=== PATIENT | male | born 1960 | race Caucasian/White ===

== ENCOUNTER 2016-07-13 08:48 | Emergency (ER) | payer OTHER ==
[2016-07-13] MEDS ORDERED: IPRATROPIUM 0.5MG/ALBUTEROL 2.5MG INH SOL UD 3ML (DUONEB)(J7620) As Ordered ONE (09:34)
--- NOTE | 2016-07-13 10:35 | REP ---
CHEST, TWO VIEWS: HISTORY: Cough. COMPARISON: 01/24/2016 A 7 mm parenchymal density is present in the left upper lobe. This is unchanged in size compared to the previous studies. The right lung is clear. The heart is normal in size. The pulmonary vasculature is normal in appearance. The bony structure is intact. IMPRESSION: No acute disease. Signed by Wyatt Diaz MD 07/13/2016 11:16 A
--- NOTE | 2016-07-13 11:37 | EDDOCDS ---
Nurse's Notes [facility] Name: Brandon Yung Age: 56 yrs Sex: Male : 1960 Arrival Date: 07/13/2016 Time: 08:48 Bed TR8 Private MD: Rj Bhatt MD Diagnosis: Acute bronchitis-exudate vs lesion right posterior pharynx, recommend close follow up, possible biopsy by ENT Presentation: 07/13 09:00 Presenting complaint: Patient states: pt c/o cough, runny nose, and headache x 4 days. ead Adult Sepsis Screening:. Suicide/Homicide risk assessment- the patient denies having any suicidal and/or homicidal ideations and does not present with any other emotional, behavioral or mental health complaints. 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 Transition of care: patient was not received from another setting of care. 09:00 Acuity: JACQUI Level 3 ead 09:00 Method Of Arrival: Walkin/Carried/Asstd ead 11:36 Adult Sepsis Screening: The patient does not have new or worsening altered mentation. ms18 Patient's respiratory rate is less than 22. Systolic blood pressure is greater than 100. Patient has a qSOFA score of 0- Negative Sepsis Screen. Triage Assessment: 09:05 General: Appears in no apparent distress, comfortable. Pain: Pain currently is 4 out of ead 10 on a pain scale. Pain: Location: face. HIV screening NA for this visit Offered previously. Neurological: Level of Consciousness is awake, alert, obeys commands, Oriented to person, place, time, Reports headache. Respiratory: Onset: The symptoms/episode began/occurred 4 days ago, Airway is patent Respiratory effort is even, unlabored. Respiratory: Reports cough that is non-productive. Derm: Skin is pink, warm & dry. Historical: - Allergies: NSAIDS (abdominal pain); - Home Meds: 1. allopurinol 100 mg Oral tab 1 tab once daily 2. atenolol 50 mg oral tab 2 times per day 3. bisacodyl 5 mg Oral TbEC 1 tab as needed for procedures 4. capsaicin 0.025 % Topical crea 3 times per day as needed for shingles 5. Cholestyramine Light 4 gram oral pwpk 1 packet 2 times per day 6. dicyclomine 10 mg Oral cap twice a day 7. gabapentin 100 mg Oral cap as needed 1 to 2 tabs (Last dose: Unknown) 8. hydrocodone-acetaminophen 10-325 mg Oral tab 1 tab three times a day As needed (Last dose: 07/12/2016) 9. lactobacillus 2 chewables three times a day diarrhea 10. mercaptopurine 50 mg oral tab 2 tab twice a day 11. loperamide 2 mg Oral cap as needed (Last dose: Unknown) 12. lisinopril 40 mg Oral tab once daily (Last dose: 07/12/2016) 13. pantoprazole 40 mg oral TbEC 1 tab 2 times per day 14. paroxetine HCl 20 mg Oral tab once daily (Last dose: Unknown) 15. simvastatin 40 mg oral tab once daily 16. 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 No barriers to communication noted, The patient speaks fluent Armenian, Speaks appropriately for age. - Family history: Not pertinent. - : The pt / caregiver states he / she is not on anticoagulants. Home medication list is obtained from the patient, [employer] import data. - Exposure Risk Screening:: None identified. Screenin:09 Screening information is obtained from the patient. Fall risk: No risks identified. ead Assistance ADL's: requires no assistance with activities of daily living. Abuse/DV Screen: The patient / caregiver reports he/she is: not in a situation that causes fear, pain or injury. Nutritional screening: No deficits noted. Advance Directives: Currently, there is no health care proxy. There is no active DNR order. There is no living will. There is no Power of Maintenance Helper. home support is adequate. Assessment: 09:35 General: Appears in no apparent distress, Behavior is cooperative, pleasant. jc4 Neurological: Level of Consciousness is awake, alert, Oriented to person, place, time. Cardiovascular: Heart tones S1 S2 present. Respiratory: Airway is patent Respiratory effort is even, unlabored, Respiratory pattern is regular, symmetrical, Breath sounds are diminished bilaterally. Derm: Skin is pink, warm & dry. 11:34 General: Appears in no apparent distress, comfortable, Behavior is appropriate for age, ms18 cooperative, pleasant. Pain: Denies pain. Neurological: No deficits noted. Respiratory: Airway is patent Respiratory effort is even, unlabored, Respiratory pattern is regular, symmetrical. GI: Abdomen is non- distended. Derm: Skin is pink, warm & dry. Vital Signs: 09:09 BP 159 / 92; Pulse 68; Resp 20; Temp 97.0(O); Pulse Ox 95% on R/A; Weight 86.64 kg (R); ead Height 5 ft. 9 in. (175.26 cm) (R); Pain 4/10; 11:25 BP 167 / 87 RA Sitting (auto/lg); Pulse 73; Resp 18; Temp 97.9(O); Pulse Ox 95% on R/A; ar3 Pain 3/10; 09:09 Body Mass Index 28.21 (86.64 kg, 175.26 cm) ead Vitals: 09:05 Log In Time: July 13, 2016 at 08:48. ead 09:28 Strep Screen is obtained and tested: Negative, a GATSNEG culture is ordered in [place] [address] and sent. ED Course: 08:49 Patient visited by Karen Bui Reg. lg 08:49 Rj Bhatt is Private Physician. lg 08:49 Patient moved to Waiting lg 09:01 Triage Initiated ead 09:07 Patient moved to Triage 1 jc4 09:10 Patient visited by Noelle Overton RN. ead 09:10 Cruz Arias PA-C is PHCP. ar2 09:10 Barb Hunt MD is Attending Physician. ar2 09:10 Patient visited by Cruz Arias PA-C. ar2 09:17 Patient moved to PD jc4 09:35 GATS (NEGATIVE STREP SCREEN) Sent. jc4 09:36 The patient / caregiver is instructed regarding the plan of care and ED course. jc4 09:58 [facility] Payment Agreement was scanned into [employer] and attached to record. lg 10:44 Chest, 2 View (pa\E\lat) Returned. EDMS 11:03 [facility] is Referral Physician. ar2 11:17 Patient visited by Jasmin Smith PCA. ar3 11:26 Patient visited by Jasmin Smith PCA. ar3 11:34 Patient moved to TR8 ms18 11:34 Patient has correct armband on for positive identification. Property sent home with ms18 patient. :Personal belongings accompany Pt. 11:34 No IV's were initiated during this patient's visit. No procedures done that require ms18 assistance. Administered Medications: 09:37 Drug: Albuterol-Ipratropium 3 ml [ipratropium-albuterol 0.5 mg-3 mg(2.5 mg base)/3 mL cs15 nebulization soln (3 mL)] Route: Inhalation; RT: 09:37 Initial Med Neb Given as ordered. Respiratory: Breath sounds are diminished cs15 bilaterally. Reports no history of lung disease but current smoker. 11:31 Patient Education: I gave the pt a spacer and showed him how to use it with his cs15 inhaler. His inhaler was not available to show him how to use them together. I told him how to plug in the inhaler and when to use it and how many puffs to do. Order Results: Radiology Order: Chest, 2 View (pa\E\lat) Test: Chest, 2 View (pa\E\lat) REASON FOR EXAMINATION: cough, sob; CHEST, TWO VIEWS:; ; HISTORY: Cough.; ; COMPARISON: 01/24/2016; ; A 7 mm parenchymal density is present in the left upper lobe. This is unchanged; in size compared to the previous studies. The right lung is clear. The heart is; normal in size. The pulmonary vasculature is normal in appearance. The bony; structure is intact.; ; IMPRESSION:; ; No acute disease.; ; ; ; Unreviewed; Outcome: 11:03 Discharge ordered by Provider. ar2 11:34 Discharge Assessment: Patient awake, alert and oriented x 3. No cognitive and/or ms18 functional deficits noted. Patient verbalized understanding of disposition instructions. patient administered narcotics - no. The following High Risk Discharge criteria are identified: None. Discharged to home ambulatory. Condition: good Condition: stable Condition: improved. Discharge instructions given to patient, Instructed on discharge instructions, follow up and referral plans. medication usage, Demonstrated understanding of instructions, medications, Pt was receptive of discharge instructions/ teaching. Prescriptions given X 4. No special radiology studies were completed. 11:36 Patient left the ED. ms18 Signatures: Dispatcher [employer] Karen Neves, Gerber Barclayhaw, Cruz, PA-Ayaka PA-C ar2 Jasmin Smith, COUPLES THERAPIST COUPLES THERAPIST ar3 Charlene Li, RN RN jc4 Noelle Overton,RN RN Darcie Rojas,RN RN ms18 Phillip Abreu,RT RT cs15 MTDD
--- NOTE | 2016-07-13 11:37 | EDDOCDS ---
Physician Documentation [facility] Name: Brandon Yung Age: 56 yrs Sex: Male : 1960 Arrival Date: 07/13/2016 Time: 08:48 Bed TR8 Private MD: Rj Bhatt MD Disposition: 07/13/16 11:03 Discharged to Home/Self Care. Impression: Acute bronchitis - exudate vs lesion right posterior pharynx, recommend close follow up, possible biopsy by ENT. - Condition is Stable. - Discharge Instructions: Acute Bronchitis, Metered Dose Inhaler with Spacer, Smoking Cessation. - Prescriptions for Doxycycline Hyclate 100 mg Oral Tablet - take 1 tablet by ORAL route every 12 hours; 20 tablet. Mucinex 600 mg - take 1 tablet by ORAL route 2 times per day; 30 tablet. Fluticasone 50 mcg/actuation Nasal [place], Suspension - inhale 2 spray by INTRANASAL route once daily; 1 bottle. Albuterol Sulfate 90 mcg/actuation Inhalation HFA Aerosol Inhaler - inhale 2 puff by INHALATION route every 4 hours As needed; 1 Inhaler. - Medication Reconciliation, Local Pharmacy Hours form. - Follow up: [facility]; When: 4 - 5 days; Reason: Recheck today's complaints. Follow up: Emergency Department; When: As needed; Reason: Fever > 102F, Trouble breathing, Worsening of conditions. - Problem is new. - Symptoms are unchanged. Historical: - Allergies: NSAIDS (abdominal pain); - Home Meds: 1. allopurinol 100 mg Oral tab 1 tab once daily 2. atenolol 50 mg oral tab 2 times per day 3. bisacodyl 5 mg Oral TbEC 1 tab as needed for procedures 4. capsaicin 0.025 % Topical crea 3 times per day as needed for shingles 5. Cholestyramine Light 4 gram oral pwpk 1 packet 2 times per day 6. dicyclomine 10 mg Oral cap twice a day 7. gabapentin 100 mg Oral cap as needed 1 to 2 tabs (Last dose: Unknown) 8. hydrocodone-acetaminophen 10-325 mg Oral tab 1 tab three times a day As needed (Last dose: 07/12/2016) 9. lactobacillus 2 chewables three times a day diarrhea 10. mercaptopurine 50 mg oral tab 2 tab twice a day 11. loperamide 2 mg Oral cap as needed (Last dose: Unknown) 12. lisinopril 40 mg Oral tab once daily (Last dose: 07/12/2016) 13. pantoprazole 40 mg oral TbEC 1 tab 2 times per day 14. paroxetine HCl 20 mg Oral tab once daily (Last dose: Unknown) 15. simvastatin 40 mg oral tab once daily 16. 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 No barriers to communication noted, The patient speaks fluent Bengali, Speaks appropriately for age. - Family history: Not pertinent. - : The pt / caregiver states he / she is not on anticoagulants. Home medication list is obtained from the patient, [employer] import data. - Exposure Risk Screening:: None identified. Vital Signs: 07/13 09:09 BP 159 / 92; Pulse 68; Resp 20; Temp 97.0(O); Pulse Ox 95% on R/A; Weight 86.64 kg / ead 191.01 lbs (R); Height 5 ft. 9 in. (175.26 cm) (R); Pain 4/10; 11:25 BP 167 / 87 RA Sitting (auto/lg); Pulse 73; Resp 18; Temp 97.9(O); Pulse Ox 95% on R/A; ar3 Pain 3/10; 09:09 Body Mass Index 28.21 (86.64 kg, 175.26 cm) ead MDM: 09:15 Strep Screen, Nursing ordered. ar2 09:15 Albuterol-Ipratropium 3 ml Inhalation once ordered. ar2 09:16 Chest, 2 View (pa\E\lat) Ordered. EDMS 09:30 GATS (NEGATIVE STREP SCREEN) Ordered. EDMS 09:45 Financial registration complete. lg 09:58 [facility] Payment Agreement was scanned into [employer] and attached to record. lg 11:05 MDI teaching with Spacer ordered. ar2 Administered Medications: 09:37 Drug: Albuterol-Ipratropium 3 ml [ipratropium-albuterol 0.5 mg-3 mg(2.5 mg base)/3 mL cs15 nebulization soln (3 mL)] Route: Inhalation; Signatures: Dispatcher [employer] EDMS Karen Bui, Reg Reg lg Cruz Arias, ZOIE LINO ar2 Noelle OvertonRN RN Darcie Rojas RN RN ms18 Phillip Abreu RT cs15 The chart was reviewed and I authenticate all verbal orders and agree with the evaluation and treatment provided.Attachments: 09:58 [facility] Payment Agreement lg MTDD
--- NOTE | 2016-07-15 12:37 | EDDOCDS ---
Nurse's Notes [facility] Name: Brandon Yung Age: 56 yrs Sex: Male : 1960 Arrival Date: 07/13/2016 Time: 08:48 Bed TR8 Private MD: jR Bhatt MD Diagnosis: Acute bronchitis-exudate vs lesion right posterior pharynx, recommend close follow up, possible biopsy by ENT Presentation: 07/13 09:00 Presenting complaint: Patient states: pt c/o cough, runny nose, and headache x 4 days. ead Adult Sepsis Screening:. Suicide/Homicide risk assessment- the patient denies having any suicidal and/or homicidal ideations and does not present with any other emotional, behavioral or mental health complaints. 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 Transition of care: patient was not received from another setting of care. 09:00 Acuity: JACQUI Level 3 ead 09:00 Method Of Arrival: Walkin/Carried/Asstd ead 11:36 Adult Sepsis Screening: The patient does not have new or worsening altered mentation. ms18 Patient's respiratory rate is less than 22. Systolic blood pressure is greater than 100. Patient has a qSOFA score of 0- Negative Sepsis Screen. Triage Assessment: 09:05 General: Appears in no apparent distress, comfortable. Pain: Pain currently is 4 out of ead 10 on a pain scale. Pain: Location: face. HIV screening NA for this visit Offered previously. Neurological: Level of Consciousness is awake, alert, obeys commands, Oriented to person, place, time, Reports headache. Respiratory: Onset: The symptoms/episode began/occurred 4 days ago, Airway is patent Respiratory effort is even, unlabored. Respiratory: Reports cough that is non-productive. Derm: Skin is pink, warm & dry. Historical: - Allergies: NSAIDS (abdominal pain); - Home Meds: 1. allopurinol 100 mg Oral tab 1 tab once daily 2. atenolol 50 mg oral tab 2 times per day 3. bisacodyl 5 mg Oral TbEC 1 tab as needed for procedures 4. capsaicin 0.025 % Topical crea 3 times per day as needed for shingles 5. Cholestyramine Light 4 gram oral pwpk 1 packet 2 times per day 6. dicyclomine 10 mg Oral cap twice a day 7. gabapentin 100 mg Oral cap as needed 1 to 2 tabs (Last dose: Unknown) 8. hydrocodone-acetaminophen 10-325 mg Oral tab 1 tab three times a day As needed (Last dose: 07/12/2016) 9. lactobacillus 2 chewables three times a day diarrhea 10. mercaptopurine 50 mg oral tab 2 tab twice a day 11. loperamide 2 mg Oral cap as needed (Last dose: Unknown) 12. lisinopril 40 mg Oral tab once daily (Last dose: 07/12/2016) 13. pantoprazole 40 mg oral TbEC 1 tab 2 times per day 14. paroxetine HCl 20 mg Oral tab once daily (Last dose: Unknown) 15. simvastatin 40 mg oral tab once daily 16. 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 No barriers to communication noted, The patient speaks fluent Romansh, Speaks appropriately for age. - Family history: Not pertinent. - : The pt / caregiver states he / she is not on anticoagulants. Home medication list is obtained from the patient, [employer] import data. - Exposure Risk Screening:: None identified. Screenin:09 Screening information is obtained from the patient. Fall risk: No risks identified. ead Assistance ADL's: requires no assistance with activities of daily living. Abuse/DV Screen: The patient / caregiver reports he/she is: not in a situation that causes fear, pain or injury. Nutritional screening: No deficits noted. Advance Directives: Currently, there is no health care proxy. There is no active DNR order. There is no living will. There is no Power of Soil Conservation Teacher. home support is adequate. Assessment: 09:35 General: Appears in no apparent distress, Behavior is cooperative, pleasant. jc4 Neurological: Level of Consciousness is awake, alert, Oriented to person, place, time. Cardiovascular: Heart tones S1 S2 present. Respiratory: Airway is patent Respiratory effort is even, unlabored, Respiratory pattern is regular, symmetrical, Breath sounds are diminished bilaterally. Derm: Skin is pink, warm & dry. 11:34 General: Appears in no apparent distress, comfortable, Behavior is appropriate for age, ms18 cooperative, pleasant. Pain: Denies pain. Neurological: No deficits noted. Respiratory: Airway is patent Respiratory effort is even, unlabored, Respiratory pattern is regular, symmetrical. GI: Abdomen is non- distended. Derm: Skin is pink, warm & dry. Vital Signs: 09:09 BP 159 / 92; Pulse 68; Resp 20; Temp 97.0(O); Pulse Ox 95% on R/A; Weight 86.64 kg (R); ead Height 5 ft. 9 in. (175.26 cm) (R); Pain 4/10; 11:25 BP 167 / 87 RA Sitting (auto/lg); Pulse 73; Resp 18; Temp 97.9(O); Pulse Ox 95% on R/A; ar3 Pain 3/10; 09:09 Body Mass Index 28.21 (86.64 kg, 175.26 cm) ead Vitals: 09:05 Log In Time: July 13, 2016 at 08:48. ead 09:28 Strep Screen is obtained and tested: Negative, a GATSNEG culture is ordered in [place] [address] and sent. ED Course: 08:49 Patient visited by Karen Bui Reg. lg 08:49 Rj Bhatt is Private Physician. lg 08:49 Patient moved to Waiting lg 09:01 Triage Initiated ead 09:07 Patient moved to Triage 1 jc4 09:10 Patient visited by Noelle Overton RN. ead 09:10 Cruz Arias PA-C is PHCP. ar2 09:10 Barb Hunt MD is Attending Physician. ar2 09:10 Patient visited by Cruz Arias PA-C. ar2 09:17 Patient moved to PD jc4 09:35 GATS (NEGATIVE STREP SCREEN) Sent. jc4 09:36 The patient / caregiver is instructed regarding the plan of care and ED course. jc4 09:58 [facility] Payment Agreement was scanned into [employer] and attached to record. lg 10:44 Chest, 2 View (pa\E\lat) Returned. EDMS 11:03 [place] is Referral Physician. ar2 11:17 Patient visited by Jasmin Smith PCA. ar3 11:26 Patient visited by Jasmin Smith PCA. ar3 11:34 Patient moved to TR8 ms18 11:34 Patient has correct armband on for positive identification. Property sent home with ms18 patient. :Personal belongings accompany Pt. 11:34 No IV's were initiated during this patient's visit. No procedures done that require ms18 assistance. 14:42 T-Sheet-- Draft Copy was scanned into [employer] and attached to record. gb 14:42 Radiology Report was scanned into [employer] and attached to record. gb Administered Medications: 09:37 Drug: Albuterol-Ipratropium 3 ml [ipratropium-albuterol 0.5 mg-3 mg(2.5 mg base)/3 mL cs15 nebulization soln (3 mL)] Route: Inhalation; RT: 09:37 Initial Med Neb Given as ordered. Respiratory: Breath sounds are diminished cs15 bilaterally. Reports no history of lung disease but current smoker. 11:31 Patient Education: I gave the pt a spacer and showed him how to use it with his cs15 inhaler. His inhaler was not available to show him how to use them together. I told him how to plug in the inhaler and when to use it and how many puffs to do. Order Results: Lab Order: GATS (NEGATIVE STREP SCREEN); SPEC'M 07/13/16 09:31 Test: GATS CULTURE (NEG STREP SCR); Value: GATS RESULT NEGATIVE FOR STREP PYOGENES (GROUP A); Status: F Radiology Order: Chest, 2 View (pa\E\lat) Test: Chest, 2 View (pa\E\lat) REASON FOR EXAMINATION: cough, sob; CHEST, TWO VIEWS:; ; HISTORY: Cough.; ; COMPARISON: 01/24/2016; ; A 7 mm parenchymal density is present in the left upper lobe. This is unchanged; in size compared to the previous studies. The right lung is clear. The heart is; normal in size. The pulmonary vasculature is normal in appearance. The bony; structure is intact.; ; IMPRESSION:; ; No acute disease.; ; ; Signed by; Wyatt Diaz MD 07/13/2016 11:16 A; Outcome: 11:03 Discharge ordered by Provider. ar2 11:34 Discharge Assessment: Patient awake, alert and oriented x 3. No cognitive and/or ms18 functional deficits noted. Patient verbalized understanding of disposition instructions. patient administered narcotics - no. The following High Risk Discharge criteria are identified: None. Discharged to home ambulatory. Condition: good Condition: stable Condition: improved. Discharge instructions given to patient, Instructed on discharge instructions, follow up and referral plans. medication usage, Demonstrated understanding of instructions, medications, Pt was receptive of discharge instructions/ teaching. Prescriptions given X 4. No special radiology studies were completed. 11:36 Patient left the ED. ms18 Signatures: Dispatcher [employer] EDMS Renetta Acosta, Reg Reg gb Karen Bui, Reg Reg lg Cruz Arias, PA-C PA-C ar2 Jasmin Smith, PREFITTER DOORS PREFITTER DOORS ar3 Charlene Li, RN RN jc4 Noelle Overton,RN Darcie Petit RN RN ms18 Phillip Abreu,RT RT cs15 Chart Complete JULIAN
--- NOTE | 2016-07-15 12:37 | EDDOCDS ---
Physician Documentation [facility] Name: Brandon Yung Age: 56 yrs Sex: Male : 1960 Arrival Date: 07/13/2016 Time: 08:48 Bed TR8 Private MD: Rj Bhatt MD Disposition: 07/13/16 11:03 Discharged to Home/Self Care. Impression: Acute bronchitis - exudate vs lesion right posterior pharynx, recommend close follow up, possible biopsy by ENT. - Condition is Stable. - Discharge Instructions: Acute Bronchitis, Metered Dose Inhaler with Spacer, Smoking Cessation. - Prescriptions for Doxycycline Hyclate 100 mg Oral Tablet - take 1 tablet by ORAL route every 12 hours; 20 tablet. Mucinex 600 mg - take 1 tablet by ORAL route 2 times per day; 30 tablet. Fluticasone 50 mcg/actuation Nasal [place], Suspension - inhale 2 spray by INTRANASAL route once daily; 1 bottle. Albuterol Sulfate 90 mcg/actuation Inhalation HFA Aerosol Inhaler - inhale 2 puff by INHALATION route every 4 hours As needed; 1 Inhaler. - Medication Reconciliation, Local Pharmacy Hours form. - Follow up: [facility]; When: 4 - 5 days; Reason: Recheck today's complaints. Follow up: Emergency Department; When: As needed; Reason: Fever > 102F, Trouble breathing, Worsening of conditions. - Problem is new. - Symptoms are unchanged. Historical: - Allergies: NSAIDS (abdominal pain); - Home Meds: 1. allopurinol 100 mg Oral tab 1 tab once daily 2. atenolol 50 mg oral tab 2 times per day 3. bisacodyl 5 mg Oral TbEC 1 tab as needed for procedures 4. capsaicin 0.025 % Topical crea 3 times per day as needed for shingles 5. Cholestyramine Light 4 gram oral pwpk 1 packet 2 times per day 6. dicyclomine 10 mg Oral cap twice a day 7. gabapentin 100 mg Oral cap as needed 1 to 2 tabs (Last dose: Unknown) 8. hydrocodone-acetaminophen 10-325 mg Oral tab 1 tab three times a day As needed (Last dose: 07/12/2016) 9. lactobacillus 2 chewables three times a day diarrhea 10. mercaptopurine 50 mg oral tab 2 tab twice a day 11. loperamide 2 mg Oral cap as needed (Last dose: Unknown) 12. lisinopril 40 mg Oral tab once daily (Last dose: 07/12/2016) 13. pantoprazole 40 mg oral TbEC 1 tab 2 times per day 14. paroxetine HCl 20 mg Oral tab once daily (Last dose: Unknown) 15. simvastatin 40 mg oral tab once daily 16. 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 No barriers to communication noted, The patient speaks fluent [place], Speaks appropriately for age. - Family history: Not pertinent. - : The pt / caregiver states he / she is not on anticoagulants. Home medication list is obtained from the patient, [employer] import data. - Exposure Risk Screening:: None identified. Vital Signs: 07/13 09:09 BP 159 / 92; Pulse 68; Resp 20; Temp 97.0(O); Pulse Ox 95% on R/A; Weight 86.64 kg / ead 191.01 lbs (R); Height 5 ft. 9 in. (175.26 cm) (R); Pain 4/10; 11:25 BP 167 / 87 RA Sitting (auto/lg); Pulse 73; Resp 18; Temp 97.9(O); Pulse Ox 95% on R/A; ar3 Pain 3/10; 09:09 Body Mass Index 28.21 (86.64 kg, 175.26 cm) ead MDM: 09:15 Strep Screen, Nursing ordered. ar2 09:15 Albuterol-Ipratropium 3 ml Inhalation once ordered. ar2 09:16 Chest, 2 View (pa\E\lat) Ordered. EDMS 09:30 GATS (NEGATIVE STREP SCREEN) Ordered. EDMS 09:45 Financial registration complete. lg 09:58 [facility] [place] was scanned into [employer] and attached to record. lg 11:05 MDI teaching with Spacer ordered. ar2 14:42 T-Sheet-- Draft Copy was scanned into [employer] and attached to record. gb 14:42 Radiology Report was scanned into [employer] and attached to record. gb Administered Medications: 09:37 Drug: Albuterol-Ipratropium 3 ml [ipratropium-albuterol 0.5 mg-3 mg(2.5 mg base)/3 mL cs15 nebulization soln (3 mL)] Route: Inhalation; Signatures: Dispatcher [employer] EDMS DaveRenetta, Reg Reg gb Karen Bui, Reg Reg lg Cruz Arias PA-C PA-C ar2 Noelle Overton RN RN eaDarcie Alcantara RN RN [id number] Phillip Abreu RT [id number] The chart was reviewed and I authenticate all verbal orders and agree with the evaluation and treatment provided.Attachments: 09:58 [facility] Payment Agreement lg 14:42 T-Sheet-- Draft Copy gb Chart Complete MTDD
--- NOTE | 2016-07-15 12:37 | EDDOCDS ---
Physician Documentation [facility] Name: Brandon Yung Age: 56 yrs Sex: Male : 1960 Arrival Date: 07/13/2016 Time: 08:48 Bed TR8 Private MD: Rj Bhatt MD Disposition: 07/13/16 11:03 Discharged to Home/Self Care. Impression: Acute bronchitis - exudate vs lesion right posterior pharynx, recommend close follow up, possible biopsy by ENT. - Condition is Stable. - Discharge Instructions: Acute Bronchitis, Metered Dose Inhaler with Spacer, Smoking Cessation. - Prescriptions for Doxycycline Hyclate 100 mg Oral Tablet - take 1 tablet by ORAL route every 12 hours; 20 tablet. Mucinex 600 mg - take 1 tablet by ORAL route 2 times per day; 30 tablet. Fluticasone 50 mcg/actuation Nasal [place], Suspension - inhale 2 spray by INTRANASAL route once daily; 1 bottle. Albuterol Sulfate 90 mcg/actuation Inhalation HFA Aerosol Inhaler - inhale 2 puff by INHALATION route every 4 hours As needed; 1 Inhaler. - Medication Reconciliation, Local Pharmacy Hours form. - Follow up: [facility]; When: 4 - 5 days; Reason: Recheck today's complaints. Follow up: Emergency Department; When: As needed; Reason: Fever > 102F, Trouble breathing, Worsening of conditions. - Problem is new. - Symptoms are unchanged. Historical: - Allergies: NSAIDS (abdominal pain); - Home Meds: 1. allopurinol 100 mg Oral tab 1 tab once daily 2. atenolol 50 mg oral tab 2 times per day 3. bisacodyl 5 mg Oral TbEC 1 tab as needed for procedures 4. capsaicin 0.025 % Topical crea 3 times per day as needed for shingles 5. Cholestyramine Light 4 gram oral pwpk 1 packet 2 times per day 6. dicyclomine 10 mg Oral cap twice a day 7. gabapentin 100 mg Oral cap as needed 1 to 2 tabs (Last dose: Unknown) 8. hydrocodone-acetaminophen 10-325 mg Oral tab 1 tab three times a day As needed (Last dose: 07/12/2016) 9. lactobacillus 2 chewables three times a day diarrhea 10. mercaptopurine 50 mg oral tab 2 tab twice a day 11. loperamide 2 mg Oral cap as needed (Last dose: Unknown) 12. lisinopril 40 mg Oral tab once daily (Last dose: 07/12/2016) 13. pantoprazole 40 mg oral TbEC 1 tab 2 times per day 14. paroxetine HCl 20 mg Oral tab once daily (Last dose: Unknown) 15. simvastatin 40 mg oral tab once daily 16. 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 No barriers to communication noted, The patient speaks fluent Belgian, Speaks appropriately for age. - Family history: Not pertinent. - : The pt / caregiver states he / she is not on anticoagulants. Home medication list is obtained from the patient, [employer] import data. - Exposure Risk Screening:: None identified. Vital Signs: 07/13 09:09 BP 159 / 92; Pulse 68; Resp 20; Temp 97.0(O); Pulse Ox 95% on R/A; Weight 86.64 kg / ead 191.01 lbs (R); Height 5 ft. 9 in. (175.26 cm) (R); Pain 4/10; 11:25 BP 167 / 87 RA Sitting (auto/lg); Pulse 73; Resp 18; Temp 97.9(O); Pulse Ox 95% on R/A; ar3 Pain 3/10; 09:09 Body Mass Index 28.21 (86.64 kg, 175.26 cm) ead MDM: 09:15 Strep Screen, Nursing ordered. ar2 09:15 Albuterol-Ipratropium 3 ml Inhalation once ordered. ar2 09:16 Chest, 2 View (pa\E\lat) Ordered. EDMS 09:30 GATS (NEGATIVE STREP SCREEN) Ordered. EDMS 09:45 Financial registration complete. lg 09:58 [facility] [place] Payment Agreement was scanned into [employer] and attached to record. lg 11:05 MDI teaching with Spacer ordered. ar2 14:42 T-Sheet-- Draft Copy was scanned into [employer] and attached to record. gb 14:42 Radiology Report was scanned into [employer] and attached to record. gb Administered Medications: 09:37 Drug: Albuterol-Ipratropium 3 ml [ipratropium-albuterol 0.5 mg-3 mg(2.5 mg base)/3 mL cs15 nebulization soln (3 mL)] Route: Inhalation; Signatures: Dispatcher [employer] EDMS DaveRenetta, Reg Reg gb Karen Bui, Reg Reg lg Cruz Arias PA-C PA-C ar2 Noelle Overton RN RN eaDarcie Alcantara RN RN [id number] Phillip Abreu RT cs15 The chart was reviewed and I authenticate all verbal orders and agree with the evaluation and treatment provided.Attachments: 09:58 [facility] Payment Agreement lg 14:42 T-Sheet-- Draft Copy gb Chart Complete MTDD
== END 2016-07-13 11:36 | disposition home or self-care (01) ==
LOC: M ED 08:48
DX: J20.9 Acute bronchitis, unspecified (principal); I10 Essential (primary) hypertension; E78.00 Pure hypercholesterolemia, unspecified; K21.9 Gastro-esophageal reflux disease without esophagitis; K58.9 Irritable bowel syndrome, unspecified; F17.210 Nicotine dependence, cigarettes, uncomplicated; Z79.891 Long term (current) use of opiate analgesic; Z79.899 Other long term (current) drug therapy; Z88.6 Allergy status to analgesic agent

== ENCOUNTER → 2016-11-24 | Outpatient (CLI) | payer OTHER ==
--- NOTE | 2016-11-24 12:56 | REP ---
SOFT TISSUE NECK, THREE VIEWS: HISTORY: Dysphagia. The cervical spine is visualized from C1 to the C6-7 level in the lateral radiographs. There is no acute fracture or subluxation. The C6-7 intervertebral disc is decreased in height consistent with disc degeneration. Anterior osteophytes are present on C6 and C7. Soft tissues of the neck are normal in appearance. IMPRESSION: Degenerative change as described above. Signed by Wyatt Diaz MD 11/24/2016 01:03 P
== END ==
LOC: M WUC 11:54
PROVIDERS: ATTEND Physician Assistant
DX: R13.12 Dysphagia, oropharyngeal phase (principal)

== ENCOUNTER 2017-03-31 09:02 | Emergency (ER) | payer OTHER ==
[~2017-03-31] VITALS: Ht 175.3 cm; Wt 83.2 kg
[2017-03-31] MEDS ORDERED: HYDR-3713 (09:20)
[2017-03-31 10:12] LABS: BASO # 0.1 10^3/uL (0.0-0.2); BASO % 0.6 % (0.0-1.0); EOS # 0.3 10^3/uL (0.0-0.50); EOS % 2.8 % (0.0-3.0); IMMATURE GRANULOCYTE % 0.2 % (0-0); LYMPH # 2.9 10^3/uL (1.5-4.5); LYMPH % 28.7 % (24.0-44.0); MEAN CORPUSCULAR HEMOGLOBIN 34.9 pg (27.0-33.0); MEAN CORPUSCULAR HGB CONC 34.6 g/dl (32.0-36.5); MEAN CORPUSCULAR VOLUME 100.9 fl (80.0-96.0); MONO # 0.9 10^3/uL (0.0-0.8); MONO % 8.9 % (0.0-5.0); NEUTROPHILS # 5.9 10^3/uL (1.8-7.7); NEUTROPHILS % 58.8 % (36.0-66.0); PLATELET COUNT, AUTOMATED 228 10^3/uL (150-450); RED CELL DISTRIBUTION WIDTH 13.9 % (11.5-14.5)
[2017-03-31 10:24] LABS: ADD MANUAL DIFFER NO; DIFF SLIDE NUMBER 164
[2017-03-31 11:21] LABS: ALBUMIN 3.8 GM/DL (3.2-5.2); ALBUMIN/GLOBULIN RATIO 1.03 (1.00-1.93); ALKALINE PHOSPHATASE 91 U/L (45-117); ALT/SGPT 47 U/L (12-78); ANION GAP 6 MEQ/L (8-16); AST/SGOT 16 U/L (15-37); BILIRUBIN,TOTAL 0.3 MG/DL (0.2-1.0); BLOOD UREA NITROGEN 16 MG/DL (7-18); CALCIUM LEVEL 9.5 MG/DL (8.5-10.1); CARBON DIOXIDE LEVEL 25 MEQ/L (21-32); CHLORIDE LEVEL 108 MEQ/L (98-107); CREATININE FOR GFR 0.99 MG/DL (0.70-1.30); GLOMERULAR FILTRATION RATE > 60.0 (>56); GLUCOSE, FASTING 87 MG/DL (70-105); POTASSIUM SERUM 4.1 MEQ/L (3.5-5.1); SODIUM LEVEL 139 MEQ/L (136-145); TOTAL PROTEIN 7.5 GM/DL (6.4-8.2)
[2017-03-31] MEDS ORDERED: CYCL10TA PO (11:37)
[2017-03-31] MEDS ORDERED: FLAG500T PO (11:37)
[2017-03-31] MEDS ORDERED: CIPR-249 PO (11:37)
[2017-03-31 12:14] VITALS: BP 111/68
== END 2017-03-31 12:15 | disposition home or self-care (01) ==
LOC: M ED 09:02
DX: K57.32 Diverticulitis of large intestine without perforation or abscess without bleeding (principal); M54.16 Radiculopathy, lumbar region; Z72.0 Tobacco use

== ENCOUNTER 2017-08-08 13:37 | Emergency (ER) | payer OTHER ==
[2017-08-08 15:43] LABS: BASO # 0.1 10^3/uL (0.0-0.2); BASO % 0.6 % (0.0-1.0); EOS # 0.4 10^3/uL (0.0-0.50); EOS % 4.5 % (0.0-3.0); HEMATOCRIT 38.7 % (42.0-52.0); HEMOGLOBIN 13.5 g/dl (14.0-18.0); IMMATURE GRANULOCYTE % 0.2 % (0-3.0); LYMPH # 2.4 10^3/uL (1.5-4.5); LYMPH % 27.9 % (24.0-44.0); MEAN CORPUSCULAR HEMOGLOBIN 34.4 pg (27.0-33.0); MEAN CORPUSCULAR HGB CONC 34.9 g/dl (32.0-36.5); MEAN CORPUSCULAR VOLUME 98.5 fl (80.0-96.0); MONO # 0.8 10^3/uL (0.0-0.8); MONO % 9.6 % (0.0-5.0); NEUTROPHILS # 4.8 10^3/uL (1.8-7.7); NEUTROPHILS % 57.2 % (36.0-66.0); PLATELET COUNT, AUTOMATED 239 10^3/uL (150-450); RED BLOOD COUNT 3.93 10^6/uL (4.30-6.10); RED CELL DISTRIBUTION WIDTH 13.2 % (11.5-14.5); WHITE BLOOD COUNT 8.5 10^3/uL (4.0-10.0)
== END 2017-08-08 16:51 | disposition home or self-care (01) ==
LOC: M ED 13:37
DX: L76.22 Postprocedural hemorrhage of skin and subcutaneous tissue following other procedure (principal); I10 Essential (primary) hypertension; K21.9 Gastro-esophageal reflux disease without esophagitis; K58.9 Irritable bowel syndrome, unspecified; Z88.8 Allergy status to other drugs, medicaments and biological substances; Z87.891 Personal history of nicotine dependence
CPT/HCPCS: 76705

== ENCOUNTER 2017-09-01 10:25 | Emergency (ER) | payer OTHER ==
[2017-09-01 10:52] LABS: BASO # 0.1 10^3/uL (0.0-0.2); BASO % 0.2 % (0.0-1.0); HEMATOCRIT 42.5 % (42.0-52.0); HEMOGLOBIN 14.7 g/dl (14.0-18.0); IMMATURE GRANULOCYTE % 0.8 % (0-3.0); LYMPH # 1.2 10^3/uL (1.5-4.5); LYMPH % 5.5 % (24.0-44.0); MEAN CORPUSCULAR HEMOGLOBIN 34.5 pg (27.0-33.0); MEAN CORPUSCULAR HGB CONC 34.6 g/dl (32.0-36.5); MEAN CORPUSCULAR VOLUME 99.8 fl (80.0-96.0); MONO % 9.4 % (0.0-5.0); NEUTROPHILS % 84.1 % (36.0-66.0); PLATELET COUNT, AUTOMATED 145 10^3/uL (150-450); RED BLOOD COUNT 4.26 10^6/uL (4.30-6.10); RED CELL DISTRIBUTION WIDTH 13.3 % (11.5-14.5); WHITE BLOOD COUNT 22.6 10^3/uL (4.0-10.0)
[2017-09-01 11:09] LABS: MONO # 2.1 10^3/uL (0.0-0.8); POSITIVE DIFF POS FLAG
[2017-09-01] MEDS: NS 500 ML IV (11:10)
[2017-09-01] MEDS: ACETAMINOPHEN 650 MG SUPP PR (11:42)
[2017-09-01 11:44] LABS: INR 1.08; PROTHROMBIN TIME 14.2 SECONDS (12.4-14.5)
[2017-09-01 12:00] LABS: ALBUMIN/GLOBULIN RATIO 0.73 (1.00-1.93); ALKALINE PHOSPHATASE 97 U/L (45-117); ALT/SGPT 42 U/L (12-78); ANION GAP 10 MEQ/L (8-16); AST/SGOT 16 U/L (7-37); BILIRUBIN,DIRECT 0.2 MG/DL (0.0-0.2); BILIRUBIN,TOTAL 0.7 MG/DL (0.2-1.0); BLOOD UREA NITROGEN 23 MG/DL (7-18); CALCIUM LEVEL 8.6 MG/DL (8.5-10.1); CARBON DIOXIDE LEVEL 23 MEQ/L (21-32); CHLORIDE LEVEL 104 MEQ/L (98-107); CK-MB VALUE MASS 1.4 NG/ML (0.0-3.6); CPK CREATINE PHOSPHOKINASE 71 U/L (39-308); CREATININE FOR GFR 2.37 MG/DL (0.70-1.30); GLOMERULAR FILTRATION RATE 30.2 (>56); GLUCOSE, FASTING 107 MG/DL (70-100); LIPASE 360 U/L (73-393); MB/CK RELATIVE INDEX 1.97 (< OR =4); POTASSIUM SERUM 4.6 MEQ/L (3.5-5.1); SODIUM LEVEL 137 MEQ/L (136-145); TOTAL PROTEIN 7.1 GM/DL (6.4-8.2); TROPONIN I < 0.02 NG/ML (< 0.10)
[2017-09-01 12:23] LABS: LACTIC ACID SEPSIS PROTOCOL 3.4 MMOL/L (0.4-2.0)
[2017-09-01] MEDS: PIPERACILLIN/TAZOBACTAM SOD 3.375 GM in APPROPRIATE DILUENT 1 EA IV (14:00)
[2017-09-01] MEDS: NS 1,000 ML IV (14:24)
[2017-09-01 15:24] LABS: LACTIC ACID SEPSIS PROTOCOL 1.7 MMOL/L (0.4-2.0)
== END 2017-09-01 16:29 | disposition short-term general hospital (02) ==
LOC: M ED 10:25
DX: L02.211 Cutaneous abscess of abdominal wall (principal); Z79.899 Other long term (current) drug therapy; Z79.51 Long term (current) use of inhaled steroids; Z98.890 Other specified postprocedural states; Z88.8 Allergy status to other drugs, medicaments and biological substances
CPT/HCPCS: J2543

== ENCOUNTER 2018-10-08 20:03 | Emergency (ER) | payer OTHER ==
[~2018-10-08] VITALS: Ht 175.3 cm; Wt 87.7 kg
[~2018-10-08 20:03] MED LIST: ALLO100T PO; ATEN50TA2 PO; BACITAB PO; BENT10CA PO; CIPR-249 PO; CYCL10TA PO; DOXA1TAB41 PO; FLAG500T PO; FLOM0.4C39 PO; FLUTISP; GABA-845 PO; HYDR-3713; HYDR-4517 PO; INFL10VL IV; LISI40TA PO; MERC50TA2 PO; PANT40TA3 PO; SIMV80TA13 PO
[2018-10-08] MEDS ORDERED: NS 1,000 ML IV ONE (20:30)
[2018-10-08] MEDS ORDERED: KETOROLAC 30 MG/ML VIAL (J1885) IV ONE (20:30)
[2018-10-08] MEDS ORDERED: ONDANSETRON 4MG/2ML VIAL (J2405) IV ONE (20:30)
[2018-10-08 20:35] LABS: HEMATOCRIT 43.9 % (42.0-52.0); MEAN CORPUSCULAR HEMOGLOBIN 34.2 pg (27.0-33.0); MEAN CORPUSCULAR HGB CONC 34.2 g/dl (32.0-36.5); MEAN CORPUSCULAR VOLUME 100.2 fl (80.0-96.0); PLATELET COUNT, AUTOMATED 244 10^3/uL (150-450); RED BLOOD COUNT 4.38 10^6/uL (4.30-6.10); WHITE BLOOD COUNT 11.4 10^3/uL (4.0-10.0)
[2018-10-08 20:48] LABS: BLOOD UREA NITROGEN 16 MG/DL (7-18); CALCIUM LEVEL 8.9 MG/DL (8.5-10.1); CARBON DIOXIDE LEVEL 24 MEQ/L (21-32); CHLORIDE LEVEL 111 MEQ/L (98-107); CREATININE FOR GFR 1.21 MG/DL (0.70-1.30); GLOMERULAR FILTRATION RATE > 60.0 (>56); GLUCOSE, FASTING 120 MG/DL (70-100); POTASSIUM SERUM 4.3 MEQ/L (3.5-5.1); SODIUM LEVEL 144 MEQ/L (136-145)
[2018-10-08 21:17] LABS: ATYPICAL LYMPH 1 % (0-5); EOSINOPHILS 5 % (0-5); LYMPHOCYTES 43 % (16-52); MONOCYTES 4 % (0-8); NEUTROPHILS 47 % (35-75); PLATELET ESTIMATE NORMAL (NORMAL)
--- NOTE | 2018-10-08 23:04 | REPVR ---
EXAM: CT Abdomen and Pelvis Without Contrast EXAM DATE/TIME: 10/08/2018 10:13 PM CLINICAL HISTORY: 58 years old, male; Pain; Abdominal pain; Colic; Additional info: Left renal colic TECHNIQUE: Imaging protocol: Axial computed tomography images of the abdomen and pelvis without contrast. Coronal and sagittal reformatted images were created and reviewed. Radiation optimization: All CT scans at this facility use at least one of these dose optimization techniques: automated exposure control; mA and/or kV adjustment per patient size (includes targeted exams where dose is matched to clinical indication); or iterative reconstruction. COMPARISON: CT ABD PELVIS W/O CONTRAST 09/01/2017 12:02 PM FINDINGS: Lower thorax: Lung bases are clear. ABDOMEN: Liver: There is decreased attenuation of the liver consistent with hepatic steatosis. There is focal fatty sparing adjacent to the gallbladder fossa. Gallbladder and bile ducts: Unremarkable. Pancreas: Normal. No ductal dilation. Spleen: Normal. No splenomegaly. Adrenals: Stable appearance of a small left adrenal adenoma. Kidneys and ureters: There are multiple bilateral punctate calyceal calcifications. There is mild left hydroureteronephrosis secondary to a 5.5 mm stone which appears stuck at the ureterovesicular junction. Stomach and bowel: There is mild diverticulosis without diverticulitis. Appendix: The appendix is not seen and there are surgical changes of the cecum. PELVIS: Bladder: The urinary bladder is incompletely distended, limiting evaluation. Reproductive: Unremarkable as visualized. ABDOMEN and PELVIS: Intraperitoneal space: Normal. No free air. No significant fluid collection. Bones/joints: Mild degenerative changes of the lumbar spine. Soft tissues: There is minimal stranding along the midline subcutaneous abdominal wall tissues, significantly improved from prior. Vasculature: Normal. No abdominal aortic aneurysm. Lymph nodes: Normal. No enlarged lymph nodes. IMPRESSION: Mild left hydroureteronephrosis due to a 5.5 mm left UVJ calculus. Electronically signed by: Stella Armstrong On 10/08/2018 23:04:39 PM
[2018-10-08] MEDS ORDERED: KETO10TAB PO (23:30)
[2018-10-08] MEDS ORDERED: FLOM0.4C39 PO (23:30)
[2018-10-08] MEDS ORDERED: TAMSULOSIN 0.4 MG CAP PO ONE (23:30)
[2018-10-08] MEDS ORDERED: ONDA4TAB6 PO (23:31)
[2018-10-08 23:32] VITALS: BP 166/82
[2018-10-08 23:50] LABS: APPEARANCE, URINE HAZY (CLEAR); BACTERIA, URINE AUTO NEGATIVE (NEGATIVE); BILIRUBIN, URINE AUTO NEGATIVE (NEGATIVE); BLOOD, URINE BLOOD 3+ (NEGATIVE); COLOR, URINE YELLOW (YELLOW); GLUCOSE, URINE (UA) AUTO NEGATIVE (NEGATIVE); KETONE, URINE AUTO TRACE mg/dL (NEGATIVE); LEUKOCYTE ESTERASE, URINE AUTO NEGATIVE (NEGATIVE); MUCUS, URINE SMALL (NEGATIVE); NITRITE, URINE AUTO NEGATIVE (NEGATIVE); PROTEIN, URINE AUTO NEGATIVE (NEGATIVE); RBC, URINE AUTO TNTC /HPF (0-3); SPECIFIC GRAVITY URINE AUTO 1.018 (1.002-1.035); SQUAMOUS EPITHELIAL CELL UR AU 0 /HPF (0-6); UROBILINOGEN, URINE AUTO 0.2 mg/dL (0.0-2.0); WBC, URINE AUTO 4 /HPF (0-3)
[2018-10-09] MEDS ORDERED: OXYC1TAB15 PO (09:39)
== END 2018-10-08 23:44 | disposition home or self-care (01) ==
LOC: M ED 20:03
DX: N21.1 Calculus in urethra (principal); Z72.0 Tobacco use; Z90.49 Acquired absence of other specified parts of digestive tract; Z96.0 Presence of urogenital implants; Z87.442 Personal history of urinary calculi; I10 Essential (primary) hypertension; K58.9 Irritable bowel syndrome, unspecified; K21.9 Gastro-esophageal reflux disease without esophagitis; K57.92 Diverticulitis of intestine, part unspecified, without perforation or abscess without bleeding; Z79.899 Other long term (current) drug therapy
CPT/HCPCS: 74176; 80048; 81001; 85025; 96374; 96375; 99284; J1885; J2405

== ENCOUNTER 2018-10-09 06:47 | Emergency (ER) | payer OTHER ==
[~2018-10-09] VITALS: Ht 175.3 cm; Wt 87.7 kg
[~2018-10-09 06:47] MED LIST changes: +KETO10TAB PO; +ONDA4TAB6 PO
[2018-10-09] MEDS ORDERED: KETOROLAC 30 MG/ML VIAL (J1885) IV ONE (07:15)
[2018-10-09] MEDS ORDERED: METOCLOPRAMIDE INJ 10MG/2ML VIAL (J2765) IV ONE (07:15)
[2018-10-09] MEDS ORDERED: NS 1,000 ML IV ONE (07:15)
[2018-10-09] MEDS ORDERED: DEXTROSE IV ONE (07:30)
[2018-10-09] MEDS ORDERED: LIDOCAINE HCL IV ONE (07:30)
[2018-10-09] MEDS ORDERED: DILUENT IV ONE (07:30)
[2018-10-09 07:37] LABS: BASO # 0.1 10^3/uL (0.0-0.2); BASO % 0.6 % (0.0-1.0); EOS # 0.3 10^3/uL (0.0-0.50); EOS % 3.2 % (0.0-3.0); HEMATOCRIT 42.5 % (42.0-52.0); HEMOGLOBIN 14.6 g/dl (13.5-17.5); MEAN CORPUSCULAR HEMOGLOBIN 33.9 pg (27.0-33.0); MEAN CORPUSCULAR HGB CONC 34.4 g/dl (32.0-36.5); MEAN CORPUSCULAR VOLUME 98.6 fl (80.0-96.0); MONO # 0.8 10^3/uL (0.0-0.8); MONO % 8.3 % (0.0-5.0); NEUTROPHILS # 5.8 10^3/uL (1.8-7.7); NEUTROPHILS % 57.6 % (36.0-66.0); PLATELET COUNT, AUTOMATED 228 10^3/uL (150-450); RED BLOOD COUNT 4.31 10^6/uL (4.30-6.10); WHITE BLOOD COUNT 10.1 10^3/uL (4.0-10.0)
[2018-10-09 08:04] LABS: BLOOD UREA NITROGEN 20 MG/DL (7-18); CALCIUM LEVEL 8.8 MG/DL (8.5-10.1); CARBON DIOXIDE LEVEL 21 MEQ/L (21-32); CHLORIDE LEVEL 111 MEQ/L (98-107); CREATININE FOR GFR 1.27 MG/DL (0.70-1.30); GLOMERULAR FILTRATION RATE > 60.0 (>56); GLUCOSE, FASTING 105 MG/DL (70-100); POTASSIUM SERUM 4.1 MEQ/L (3.5-5.1); SODIUM LEVEL 142 MEQ/L (136-145)
[2018-10-09] MEDS ORDERED: OXYC1TAB15 PO (09:39)
[2018-10-09 09:46] VITALS: BP 152/84
== END 2018-10-09 09:59 | disposition home or self-care (01) ==
LOC: M ED 06:47
DX: N23 Unspecified renal colic (principal); I10 Essential (primary) hypertension; Z87.442 Personal history of urinary calculi; K58.9 Irritable bowel syndrome, unspecified; K21.9 Gastro-esophageal reflux disease without esophagitis; F17.200 Nicotine dependence, unspecified, uncomplicated; Z79.899 Other long term (current) drug therapy; Z87.19 Personal history of other diseases of the digestive system; Z98.890 Other specified postprocedural states
CPT/HCPCS: 80048; 81001; 85025; 96374; 96375; 99284; J1885; J2765

== ENCOUNTER → 2020-01-26 | Emergency (ER) | payer OTHER ==
[~2020-01-26] MED LIST changes: +CYCL-707 PO; -CYCL10TA PO; +ISOVUE-370 76% 100ML VIAL As Ordered ONE; +OXYC1TAB15 PO; +PANT40TA29 PO; -PANT40TA3 PO; +PANTOPRAZOLE 40MG VIAL (C9113 PER 1) As Ordered ONE
[2020-03-03 17:08] LABS: BASO # 0.1 10^3/uL (0.0-0.2); BASO % 0.5 % (0.0-1.0); EOS # 0.3 10^3/uL (0.0-0.5); EOS % 3.4 % (0.0-3.0); HEMATOCRIT 47.5 % (42.0-52.0); HEMOGLOBIN 16.1 g/dl (13.5-17.5); LYMPH # 3.3 10^3/uL (1.5-5.0); LYMPH % 33.8 % (24.0-44.0); MEAN CORPUSCULAR HEMOGLOBIN 33.7 pg (27.0-33.0); MEAN CORPUSCULAR HGB CONC 33.9 g/dl (32.0-36.5); MEAN CORPUSCULAR VOLUME 99.4 fl (80.0-96.0); MONO % 9.9 % (0.0-5.0); NEUTROPHILS # 5.2 10^3/uL (1.5-8.5); NEUTROPHILS % 52.2 % (36.0-66.0); PLATELET COUNT, AUTOMATED 206 10^3/uL (150-450); RED BLOOD COUNT 4.78 10^6/uL (4.30-6.10); WHITE BLOOD COUNT 9.9 10^3/uL (4.0-10.0)
[2020-03-03 18:08] LABS: ERYTHROCYTE SEDIMENTATION RATE 3 mm/hr (0-20)
[2020-03-03 18:08] LABS: INR 1.01; PARTIAL THROMBOPLASTIN TIME 27.2 SECONDS (25.0-38.4); PROTHROMBIN TIME 13.5 SECONDS (11.8-14.0)
[2020-04-06 11:03] LABS: ALBUMIN 3.8 GM/DL (3.2-5.2); ALT/SGPT 67 U/L (12-78); BILIRUBIN,DIRECT 0.1 MG/DL (0.0-0.2); BILIRUBIN,TOTAL 0.5 MG/DL (0.2-1.0); BLOOD UREA NITROGEN 14 MG/DL (7-18); C REACTIVE PROTEIN QUANTITATIV 0.51 MG/DL (0.00-0.30); CALCIUM LEVEL 9.4 MG/DL (8.8-10.2); CARBON DIOXIDE LEVEL 28 MEQ/L (21-32); CHLORIDE LEVEL 110 MEQ/L (98-107); CREATININE FOR GFR 1.15 MG/DL (0.70-1.30); GLOMERULAR FILTRATION RATE > 60.0 (>49); GLUCOSE, FASTING 84 MG/DL (70-100); POTASSIUM SERUM 4.2 MEQ/L (3.5-5.1); SODIUM LEVEL 143 MEQ/L (136-145); TOTAL PROTEIN 7.5 GM/DL (6.4-8.2)
== END | disposition home or self-care (01) ==
LOC: M ED 12:45
DX: R10.32 Left lower quadrant pain (principal); R19.7 Diarrhea, unspecified; K50.90 Crohn's disease, unspecified, without complications; Z79.899 Other long term (current) drug therapy; Z79.82 Long term (current) use of aspirin; Z88.8 Allergy status to other drugs, medicaments and biological substances
CPT/HCPCS: 74177; 80048; 80076; 85025; 85610; 85652; 85730; 86140; 86850; 86900; 86901; 96361; 96374; 99283; C9113; Q9967

== ENCOUNTER 2020-07-03 17:05 | Emergency (ER) | payer OTHER ==
[~2020-07-03] VITALS: Ht 175.3 cm; Wt 88.2 kg
[~2020-07-03 17:05] MED LIST changes: -ISOVUE-370 76% 100ML VIAL As Ordered ONE; -PANTOPRAZOLE 40MG VIAL (C9113 PER 1) As Ordered ONE
[2020-07-03] MEDS ORDERED: KETOROLAC 30 MG/ML 1ML VIAL IV ONE ×2 (17:45→18:30)
[2020-07-03] MEDS ORDERED: ONDANSETRON 4MG/2ML VIAL IV ONE (17:45)
[2020-07-03] MEDS ORDERED: TAMSULOSIN 0.4 MG CAP PO ONE (18:30)
--- NOTE | 2020-07-03 18:56 | REPVR ---
PROCEDURE INFORMATION: Exam: CT Abdomen And Pelvis Without Contrast Exam date and time: 07/03/2020 6:18 PM Age: 60 years old Clinical indication: Abdominal pain; Flank; Right; Additional info: Right renal colic TECHNIQUE: Imaging protocol: Computed tomography of the abdomen and pelvis without contrast. Radiation optimization: All CT scans at this facility use at least one of these dose optimization techniques: automated exposure control; mA and/or kV adjustment per patient size (includes targeted exams where dose is matched to clinical indication); or iterative reconstruction. COMPARISON: CT ABD PELVIS W/O CONTRAST 10/08/2018 10:06 PM FINDINGS: Lungs: Dependent atelectasis within the lung bases. Liver: Diffuse hepatic steatosis with areas of focal fatty sparing adjacent to the gallbladder fossa. Gallbladder and bile ducts: Contracted gallbladder without calcified gallstones. No pericholecystic fluid. Normal caliber common bile duct. Pancreas: Unremarkable. No ductal dilation. Spleen: Unremarkable. No splenomegaly. Adrenal glands: Low-density nodularity of the left adrenal gland, unchanged consistent with adenoma. Normal right adrenal gland. Kidneys and ureters: Multiple nonobstructing stones ranging from punctate to 11 mm in diameter within the right kidney. Stone measuring 3.5 mm within the distal aspect of the right ureter (axial images [id number] and coronal reformatted image 66). Mild to moderate right hydroureteronephrosis. 3 or 4 punctate nonobstructing stones in the left kidney. No left hydronephrosis. No focal renal lesion. Stomach and bowel: Diverticulosis of the descending and sigmoid colon. No diverticulitis. Status post right hemicolectomy with ileocolic anastomosis. No bowel obstruction. The stomach and small bowel are unremarkable. Appendix: No evidence of appendicitis. Intraperitoneal space: No free air. No significant fluid collection. Vasculature: Mild atherosclerosis of the abdominal aorta and branch vessels. No aneurysm. Lymph nodes: No enlarged lymph nodes. Urinary bladder: Unremarkable as visualized. Reproductive: Unremarkable as visualized. Bones/joints: No acute bone or joint abnormality. Soft tissues: Tiny right umbilical hernia containing fat. IMPRESSION: 1. 3.5 mm stone in the right distal ureter resulting in mild to moderate right hydroureteronephrosis. 2. Bilateral nephrolithiasis. 3. Other nonemergent findings as described above. Electronically signed by: Maxx Garcia On 07/03/2020 18:56:26 PM
[2020-07-03 20:00] VITALS: BP 164/86
[2020-07-03] MEDS ORDERED: ONDA4TAB6 PO (21:29)
[2020-07-03] MEDS ORDERED: PERC5TAB12 PO (21:29)
[2020-07-03] MEDS ORDERED: FLOM0.4C39 PO (21:29)
[2020-07-03] MEDS ORDERED: KETO10TAB PO (21:29)
[2020-07-03] MEDS ORDERED: PERCOCET 5MG/325MG TAB PO ONE (21:30)
[2020-07-03] MEDS ORDERED: OXYCODONE/APAP 5MG/325MG(BULK FOR ED) 1 TABLET PO ONE (21:30)
== END 2020-07-03 21:42 | disposition home or self-care (01) ==
LOC: M ED 17:05
DX: N13.2 Hydronephrosis with renal and ureteral calculous obstruction (principal); K58.9 Irritable bowel syndrome, unspecified; I10 Essential (primary) hypertension; F17.200 Nicotine dependence, unspecified, uncomplicated
CPT/HCPCS: 74176; 96374; 96375; 99284; J1885; J2405

== ENCOUNTER 2021-02-05 10:42 | Emergency (ER) | payer OTHER ==
[~2021-02-05] VITALS: Ht 175.3 cm; Wt 91.8 kg
[~2021-02-05 10:42] MED LIST changes: +GABA-283 PO; -GABA-845 PO; -LISI40TA PO; +LISI40TA4 PO; -OXYC1TAB15 PO; +OXYC7.5T3 PO; +PERC5TAB12 PO
--- NOTE | 2021-02-05 13:40 | REP ---
INDICATION: pain. COMPARISON: None. TECHNIQUE: Multiple ultrasonographic images of the deep venous structures of the right lower extremity were obtained from the inguinal ligament to the ankle. Venous compression techniques, color doppler imaging, and augmentation techniques were also obtained where appropriate. As per the ACR guidelines the anterior tibial vein can not be effectively evaluated. Only compression techniques in the calf on the peroneal and posterior tibial veins was attempted/performed. FINDINGS: There is no abnormal echogenic material seen within any of the visualized deep venous structures that would suggest acute thrombosis. Coaptation is unremarkable throughout. Doppler interrogation shows an expected response to respiratory variability and augmentation in the thigh. Compression techniques in the calf showed no abnormality. The color flow images show what appears to be a normal vascular pattern throughout the thigh. IMPRESSION: There is no ultrasonographic evidence of deep venous thrombosis involving any of the visualized deep venous structures of the right lower extremity as described above. Deep vein ultrasonography cannot accurately assess for arterial disease. Consider bilateral lower extremity arterial ultrasound with Doppler. <Electronically signed by Sid Simpson > 02/05/21 [id number]
[2021-02-05 13:57] LABS: BASO # 0.1 10^3/uL (0.0-0.2); BASO % 0.9 % (0.0-1.0); EOS # 0.3 10^3/uL (0.0-0.5); EOS % 2.4 % (0.0-3.0); HEMATOCRIT 48.2 % (42.0-52.0); HEMOGLOBIN 16.9 g/dl (13.5-17.5); LYMPH # 3.4 10^3/uL (1.5-5.0); LYMPH % 32.9 % (24.0-44.0); MEAN CORPUSCULAR HEMOGLOBIN 34.8 pg (27.0-33.0); MEAN CORPUSCULAR HGB CONC 35.1 g/dl (32.0-36.5); MEAN CORPUSCULAR VOLUME 99.2 fl (80.0-96.0); MONO # 0.9 10^3/uL (0.0-0.8); MONO % 8.8 % (2.0-8.0); NEUTROPHILS # 5.6 10^3/uL (1.5-8.5); NEUTROPHILS % 54.8 % (36.0-66.0); PLATELET COUNT, AUTOMATED 208 10^3/uL (150-450); RED BLOOD COUNT 4.86 10^6/uL (4.30-6.10); WHITE BLOOD COUNT 10.3 10^3/uL (4.0-10.0)
[2021-02-05 14:19] LABS: ALBUMIN 3.9 GM/DL (3.2-5.2); ALT/SGPT 57 U/L (12-78); BILIRUBIN,DIRECT 0.2 MG/DL (0.0-0.2); BILIRUBIN,TOTAL 0.5 MG/DL (0.2-1.0); BLOOD UREA NITROGEN 13 MG/DL (7-18); CALCIUM LEVEL 9.4 MG/DL (8.8-10.2); CARBON DIOXIDE LEVEL 27 MEQ/L (21-32); CHLORIDE LEVEL 109 MEQ/L (98-107); CK-MB VALUE MASS < 1.0 NG/ML (<3.6); CPK CREATINE PHOSPHOKINASE 88 U/L (39-308); CREATININE FOR GFR 0.89 MG/DL (0.70-1.30); GLOMERULAR FILTRATION RATE > 60.0 (>49); GLUCOSE, FASTING 82 MG/DL (70-100); MB/CK RELATIVE INDEX 1.14 (< OR =4); NT-PRO BNP 168 PG/ML (<125); POTASSIUM SERUM 4.9 MEQ/L (3.5-5.1); SODIUM LEVEL 138 MEQ/L (136-145); TOTAL PROTEIN 7.5 GM/DL (6.4-8.2); TROPONIN I < 0.02 NG/ML (< 0.10)
[2021-02-05 14:20] LABS: C REACTIVE PROTEIN QUANTITATIV 1.21 MG/DL (0.00-0.30)
[2021-02-05 14:21] LABS: INR 0.93; PROTHROMBIN TIME 12.9 SECONDS (12.7-14.5)
[2021-02-05 14:22] LABS: PARTIAL THROMBOPLASTIN TIME 30.9 SECONDS (25.9-37.0)
[2021-02-05 14:24] LABS: D-DIMER QUANT 560.99 ng/ml (<500)
--- NOTE | 2021-02-05 14:37 | REP ---
INDICATION: CHEST PAIN. COMPARISON: None. FINDINGS: The technique utilized in obtaining the radiograph has magnified the cardiac silhouette and accentuated the interstitial markings. The superior mediastinal structures are midline. The cardiac silhouette is unremarkable in size, shape, and position. The diaphragmatic surfaces of the lungs are regular, and the costophrenic angles are clear. The interstitial markings are mildly increased and there is some evidence of early pulmonary vascular redistribution.. There are 2 left lung nodules which are unchanged. The imaged osseous structures are stable and intact. IMPRESSION: Possible early interstitial edema <Electronically signed by Sid Simpson > 02/05/21 [id number]
[2021-02-05] MEDS ORDERED: ISOVUE-370 76% 100ML VIAL As Ordered ONE (15:26)
--- NOTE | 2021-02-05 16:50 | REP ---
INDICATION: leg pain. COMPARISON: None. FINDINGS: Right lower extremity: Brachial peak systole: 200 mmHg Dorsalis pedis peak systole: Unable to tolerate mmHg [employer] peak systole: Unable to tolerate mmHg ARIANA: Unable to calculate. SQUEAK RATTLE [employer]AK REPAIRER: 59.2 velocity, triphasic phasicity Profunda: 120.8 velocity, triphasic phasicity SFA prox: 17.6/90.8/occlusion velocity, occlusion phasicity SFA mid: Occlusion, flow reversal/ collateral flow velocity, monophasic phasicity SFA dist: Occlusion, flow reversal/collateral flow velocity, monophasic phasicity Pop: 24 velocity, monophasic phasicity NIK prox: 25.8 velocity, monophasic phasicity Tib/P tr: 21.1 velocity, monophasic phasicity [employer] pr: 24.9 velocity, monophasic phasicity [employer] dst: 23.7 velocity, monophasic phasicity NIK dst: Occlusion velocity, occlusion phasicity Brachial peak systole: 198 mmHg Dorsalis pedis peak systole: Unable to tolerate mmHg [employer] peak systole: The unable to tolerate mmHg ARIANA: Unable to calculate. SQUEAK RATTLE [employer] LEAK REPAIRER: 69.4 velocity, 4 triphasic phasicity Profunda: The 91.0 velocity, triphasic phasicity SFA prox: 89.9 velocity, biphasic phasicity SFA mid: 124.9 velocity, biphasic phasicity SFA dist: 75.2 velocity, biphasic phasicity Pop: 31.0 velocity, triphasic phasicity NIK prox: 37.5 velocity, biphasic phasicity Tib/P tr: 68.4 velocity, biphasic phasicity [employer] pr: The 99.5 velocity, biphasic phasicity [employer] dst: 58.4 velocity, biphasic phasicity NIK dst: Occluded velocity, occluded phasicity IMPRESSION: Right lower extremity: Severe plaque throughout. There is occlusion at the mid and distal SFA with flow reversal and collateral flow. There is monophasic flow throughout below the mid SFA indicating poor vascular flow. Left lower extremity: There is moderate atheromatous plaque throughout the left lower extremity. There is triphasic and biphasic flow throughout to the distal [employer]. No significant stenosis is identified in these areas. The distal NIK is occluded. <Electronically signed by Enrico Lee > 02/05/21 [id number]
[2021-02-05] MEDS ORDERED: NORCO, ANEXSIA 5/325MG TABLET (HYDROcodone/ACETAMINOPHEN) PO ONE (17:15)
--- NOTE | 2021-02-05 17:27 | REP ---
INDICATION: elevated dimer/ SENIOR/ CP. COMPARISON: Comparison study is from June 20, 2009.. TECHNIQUE: Contrast dose: 75 ML of Isovue [address] technique: Helical scanning is acquired and overlapping 1.5 mm and contiguous 3 mm axial images are reformatted. In addition, maximum intensity projection and multiplanar re-formation images are generated in sagittal and coronal imaging projections. FINDINGS: There is good opacification in the pulmonary arterial tree. There is no evidence of vessel cut off or filling defect to suggest pulmonary embolus. Homogeneous opacity is seen in the thoracic aorta. There is no evidence of aneurysm or dissection. There is no evidence of pleural or pericardial effusion. There is vascular calcification along the course of the left coronary artery. No hilar or mediastinal mass or adenopathy is observed. Lung window settings demonstrate there are scattered pulmonary parenchymal granulomatous nodules. No lung mass or significant pulmonary nodule is appreciated. No infiltrate or atelectasis. In the upper abdomen, there is mild to moderate diffuse fatty infiltration of the liver. There is an area of fat sparing in the left lobe of the liver adjacent the gallbladder unchanged from comparison CT abdomen pelvis 26 January 2020. There are intrarenal calculi in the upper pole the right kidney seen at the bottom edge of the imaging field of view. The largest of these calculi measures 9 mm in diameter. IMPRESSION: No CT evidence of pulmonary embolus. Intrarenal nephrolithiasis right kidney. Fatty infiltration of the liver. Vascular calcification. Old granulomatous changes. <Electronically signed by Noe Don > 02/05/21 [id number]
[2021-02-05 18:06] VITALS: BP 162/70
--- NOTE | 2021-02-06 06:34 | ECGEPIP ---
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
== END 2021-02-05 18:41 | disposition home or self-care (01) ==
LOC: M ED 10:42
DX: N20.0 Calculus of kidney (principal); R00.1 Bradycardia, unspecified; R06.02 Shortness of breath; I70.201 Unspecified atherosclerosis of native arteries of extremities, right leg; I10 Essential (primary) hypertension; K21.9 Gastro-esophageal reflux disease without esophagitis; K58.9 Irritable bowel syndrome, unspecified; Z79.899 Other long term (current) drug therapy; F17.210 Nicotine dependence, cigarettes, uncomplicated
CPT/HCPCS: 36415; 71045; 71275; 80048; 80076; 82550; 82553; 83880; 84484; 85025; 85379; 85610; 85730; 86140; 93005; 93041; 93925; 93971; 94760; 99285; Q9967

== ENCOUNTER → 2021-06-02 | Outpatient (CLI) | payer OTHER ==
--- NOTE | 2021-06-03 04:03 | REP ---
INDICATION: ABD PAIN COMPARISON: None. TECHNIQUE: Real time schreiber scale ultrasound examination using curved array transducer. FINDINGS: Liver is echogenic with poor through transmission suggesting fatty infiltration. No focal hepatic lesions are identified. Liver measures approximately 19 cm in craniocaudal length suggesting mild hepatomegaly. Pancreas is incompletely evaluated due to interposed bowel gas but visualized portions appear normal. The gallbladder is contracted and incompletely evaluated although multiple gallstones and layering sludge are identified. No biliary ductal dilatation is appreciated and the common bile duct measures 6.0 mm diameter. Right kidney measures 12.5 x 5.8 x 5.6 cm and includes nonobstructing intrarenal calculi including 21 mm upper pole calculus. No hydronephrosis or perinephric fluid identified. No ascites in the visualized right upper quadrant. IMPRESSION: 1. Contracted incomplete evaluation of the gallbladder demonstrating cholelithiasis. 2. Mild hepatomegaly and diffuse hepatosteatosis. 3. Multiple nonobstructing right renal calculi up to approximately 21 mm upper pole. <Electronically signed by Vasiliy Armenta > 06/03/21 [id number]
== END ==
LOC: M RAD 09:31
PROVIDERS: ATTEND Internal Medicine
DX: R10.9 Unspecified abdominal pain (principal); N20.0 Calculus of kidney; K80.20 Calculus of gallbladder without cholecystitis without obstruction; R16.0 Hepatomegaly, not elsewhere classified

== ENCOUNTER → 2021-07-15 | Outpatient (CLI) | payer OTHER | LOC: M PLAIMG 13:46 | PROVIDERS: ATTEND Internal Medicine | DX: M54.50 Low back pain, unspecified (principal); M51.36 Other intervertebral disc degeneration, lumbar region ==

== ENCOUNTER 2022-05-12 04:46 | Emergency (ER) | payer OTHER ==
[~2022-05-12] VITALS: Ht 175.3 cm; Wt 87.0 kg
[2022-05-12 05:46] LABS: BASO # 0.1 10^3/uL (0.0-0.2); BASO % 0.5 % (0.0-1.0); EOS # 0.2 10^3/uL (0.0-0.5); EOS % 2.1 % (0.0-3.0); HEMOGLOBIN 16.2 g/dl (13.5-17.5); LYMPH # 2.7 10^3/uL (1.5-5.0); LYMPH % 29.2 % (24.0-44.0); MEAN CORPUSCULAR HEMOGLOBIN 33.4 pg (27.0-33.0); MEAN CORPUSCULAR HGB CONC 33.8 g/dl (32.0-36.5); MONO % 10.9 % (2.0-8.0); NEUTROPHILS # 5.2 10^3/uL (1.5-8.5); PLATELET COUNT, AUTOMATED 298 10^3/uL (150-450); RED BLOOD COUNT 4.85 10^6/uL (4.30-6.10); WHITE BLOOD COUNT 9.2 10^3/uL (4.0-10.0)
[2022-05-12 06:12] LABS: ALBUMIN 3.6 GM/DL (3.2-5.2); ALT/SGPT 59 U/L (12-78); BILIRUBIN,DIRECT 0.1 MG/DL (0.0-0.2); BILIRUBIN,TOTAL 0.4 MG/DL (0.2-1.0); BLOOD UREA NITROGEN 21 MG/DL (7-18); C REACTIVE PROTEIN QUANTITATIV 0.49 MG/DL (0.00-0.30); CALCIUM LEVEL 9.5 MG/DL (8.8-10.2); CARBON DIOXIDE LEVEL 23 MEQ/L (21-32); CHLORIDE LEVEL 112 MEQ/L (98-107); CREATININE FOR GFR 1.12 MG/DL (0.70-1.30); GLOMERULAR FILTRATION RATE > 60.0 (>49); GLUCOSE, FASTING 121 MG/DL (70-100); LIPASE 235 U/L (73-393); POTASSIUM SERUM 4.2 MEQ/L (3.5-5.1); SODIUM LEVEL 139 MEQ/L (136-145); TOTAL PROTEIN 7.6 GM/DL (6.4-8.2)
[2022-05-12] MEDS ORDERED: KETOROLAC 30 MG/ML 1ML VIAL IV ONE (09:55)
[2022-05-12] MEDS: HYDROMORPHONE HCL 0.5 MG/ 0.5 ML SYRINGE (J1170 PER 1) IV PRN ×2 (10:03→12:54)
[2022-05-12] MEDS ORDERED: HYDROMORPHONE HCL 0.5 MG/ 0.5 ML SYRINGE (J1170 PER 1) IV PRN (15:10)
[2022-05-12 16:00] VITALS: BP 195/99
[2022-05-12 16:51] LABS: RSV AMPLIFICATION NEGATIVE (NEGATIVE)
== END 2022-05-12 17:15 | disposition left against medical advice (07) ==
LOC: M ED 04:46
DX: N20.1 Calculus of ureter (principal); Z53.9 Procedure and treatment not carried out, unspecified reason; K76.0 Fatty (change of) liver, not elsewhere classified; K57.32 Diverticulitis of large intestine without perforation or abscess without bleeding; I10 Essential (primary) hypertension; K58.9 Irritable bowel syndrome, unspecified; Z87.442 Personal history of urinary calculi; Z79.899 Other long term (current) drug therapy
CPT/HCPCS: 74176; 80048; 80076; 81000; 81015; 83690; 85025; 86140; 87086; 87631; 96374; 96375; 96376; 99284; J1170; J1885

== ENCOUNTER 2023-06-01 09:02 | Emergency (ER) | payer OTHER ==
[~2023-06-01] VITALS: Ht 175.3 cm; Wt 90.9 kg
[~2023-06-01 09:02] MED LIST changes: -GABA-283 PO; +GABA-284 PO
[2023-06-01 10:52] LABS: HEMATOCRIT 47.8 % (42.0-52.0); HEMOGLOBIN 16.3 g/dl (13.5-17.5); MEAN CORPUSCULAR HEMOGLOBIN 33.1 pg (27.0-33.0); MEAN CORPUSCULAR HGB CONC 34.1 g/dl (32.0-36.5); PLATELET COUNT, AUTOMATED 238 10^3/uL (150-450); RED BLOOD COUNT 4.93 10^6/uL (4.30-6.10)
[2023-06-01 11:17] LABS: ALBUMIN 3.7 G/DL (3.2-5.2); BILIRUBIN,DIRECT 0.2 MG/DL (<0.4); BILIRUBIN,TOTAL 0.5 MG/DL (0.3-1.2); TOTAL PROTEIN 7.4 G/DL (5.7-8.2)
[2023-06-01 11:35] LABS: ATYPICAL LYMPH 7 % (0-5); BASOPHILS 1 % (0-1); EOSINOPHILS 2 % (0-3); LYMPHOCYTES 27 % (16-44); MONOCYTES 10 % (0-5); NEUTROPHILS 53 % (28-66)
[2023-06-01 11:36] LABS: PLATELET ESTIMATE NORMAL (NORMAL)
[2023-06-01] MEDS ORDERED: ISOVUE-370 76% 100ML VIAL As Ordered ONE (12:00)
[2023-06-01] MEDS ORDERED: ONDANSETRON 4MG 2ML VIAL IV ONE (12:00)
[2023-06-01] MEDS ORDERED: NS 1,000 ML IV ONE (12:00)
[2023-06-01 13:20] LABS: INR 1.7; PROTHROMBIN TIME 19.4 SECONDS (12.5-14.5)
[2023-06-01 13:21] LABS: PARTIAL THROMBOPLASTIN TIME 33.8 SECONDS (24.8-34.2)
[2023-06-01 14:20] LABS: CK-MB VALUE MASS < 1.0 NG/ML (<3.6)
[2023-06-01 14:34] LABS: CPK CREATINE PHOSPHOKINASE 88 U/L (46-171); MB/CK RELATIVE INDEX 1.13 (< OR =4)
[2023-06-01] MEDS ORDERED: PRED10TA2 PO (17:14)
[2023-06-01] MEDS ORDERED: METR-265 PO (17:14)
[2023-06-01 17:35] VITALS: BP 155/90; TEMP 98; O2SAT 97
== END 2023-06-01 17:38 | disposition home or self-care (01) ==
LOC: M ED 09:02
DX: K51.00 Ulcerative (chronic) pancolitis without complications (principal); I10 Essential (primary) hypertension; K21.9 Gastro-esophageal reflux disease without esophagitis; K57.92 Diverticulitis of intestine, part unspecified, without perforation or abscess without bleeding; E78.5 Hyperlipidemia, unspecified; K58.9 Irritable bowel syndrome, unspecified; N40.0 Benign prostatic hyperplasia without lower urinary tract symptoms; Z87.442 Personal history of urinary calculi; F17.200 Nicotine dependence, unspecified, uncomplicated; K76.0 Fatty (change of) liver, not elsewhere classified; N20.0 Calculus of kidney; Z79.899 Other long term (current) drug therapy
CPT/HCPCS: 71046; 74177; 80047; 80076; 82550; 82553; 83690; 84484; 85025; 85610; 85730; 87507; 93005; 96361; 96374; 99284; J2405; Q9967